=== PATIENT | female | born 1945 | race Caucasian/White ===

== ENCOUNTER 2018-09-04 09:34 | Day surgery (SDC) | payer MEDICARE, OTHER ==
[~2018-09-04 09:34] MED LIST: BUPIVACAINE HCL 0.75% INJ/PF (7.5 MG/1 ML) 10 ML SDV OD PRN; CHONDR SU A NA/HYALUR INTRAOC KIT (SURGICARE) ONE; EPINEPHRINE INJ/PF 1 MG/1 ML AMPULE ONE; FENTANYL CITRATE INJ/PF 100 MCG/2 ML AMPUL ONE; KETOROLAC TROMETHAMINE 0.45% 4 DROP/0.4 ML DROPERETTE OD PRN; LIDOCAINE 1% INJ-PF (10 MG/ML) 30 ML SDV ONE; LIDOCAINE 4% INJ/PF (40 MG/ML) 5 ML AMPUL OD PRN; MIDAZOLAM 2 MG/2 ML INJ ONE
[2018-09-04] MEDS: TROPICAMIDE 1% OPH SOLN 3 ML OD PRN ×3 (10:32→10:52)
[2018-09-04] MEDS: BESIFLOXACIN HCL 0.6% OPH SUSP 5 ML BOTTLE OD PRN ×4 (10:32→11:49)
[2018-09-04] MEDS: CYCLOPENTOLATE 0.2%/PHENYLEPHRINE 1% OPH SOLN 2 ML OD PRN ×3 (10:32→10:52)
[2018-09-04] MEDS: TETRACAINE HCL 0.5% OPH SOLN 0.6 ML DROPERETTE OD PRN ×2 (10:33→10:52)
[2018-09-04] MEDS ORDERED: LIDOCAINE 1%/PHENYLEPHRINE 1.5% 1 ML VIAL ONE (11:03)
--- NOTE | 2018-09-04 12:21 | [facility] OPERATIVE REPORT E ---
[facility] Operative Report NAME: ISRAEL MOHAN AGE: 73Y DATE OF SURGERY: 09/04/2018 ROOM: PREOPERATIVE DIAGNOSIS: CATARACT, RIGHT EYE. POSTOPERATIVE DIAGNOSIS: CATARACT, RIGHT EYE. PROCEDURE PERFORMED: PHACOEMULSIFICATION WITH SYMFONY INTRAOCULAR LENS, RIGHT EYE. SURGEON: ALEKSANDR ARANA MD ANESTHESIA: TOPICAL WITH MAC. INDICATIONS FOR SURGERY: Difficulty reading small print and captions on TV. Best corrected visual acuity 20/50. PROCEDURE: The patient was brought to the Operating Room and placed on the operative table. Following tetracaine drops, topical anesthesia was administered. This consisted of instrument wipe pledgets soaked in a solution of 4% Xylocaine mixed with 0.75% Marcaine in a 1:2 ratio. A 2 x 1 cm pledget was placed in the superior fornix. A 1 x 1 cm pledget was placed in the inferior fornix. The eye was patched shut for 5 minutes. The patch was removed. The eye was sterilely prepped and draped in the usual manner. Lid speculum was placed in the eye. The pledgets were removed. 4-0 black silk sutures were placed around the superior and the inferior rectus muscles to be used as traction. A conjunctival peritomy was made at the 10 o'clock position. Hemostasis was obtained with bipolar cautery. A posterior limbal groove was created using a crescent knife and dissected anteriorly towards the cornea. A sharp point blade was used to create a paracentesis site at the 2 o'clock position. A 2.4 mm keratome was used to enter the anterior chamber through the groove. Viscoelastic was injected into the anterior chamber. An anterior capsulotomy was performed using Utrata forceps in a capsulorrhexis fashion. Hydrodissection and hydrodelineation were performed. Phacoemulsification was performed in onoguh-jfw-hilkppc technique. A total of 1 minute 8 seconds phaco time was used. Following this, the I/A unit was used to remove residual cortex. Viscoelastic was injected into the capsular bag. Intraocular lens model ZXR00, 23.0 diopters, serial number [id number] was placed in the capsular bag. The I/A unit was used to remove residual viscoelastic. The wound was seen to be watertight under high and low pressure, and no sutures were placed. The intraocular lens was well centered. The pressure was adjusted in the eye to normal pressure. The 4-0 black silk sutures and lid speculum were removed. The eye was shielded after Besivance drops were placed. The patient tolerated the procedure well and was sent to the Recovery Room in good condition. DICTATING PHYSICIAN: ALEKSANDR ARANA M.D. DICTATING PHYSICIAN: ALEKSANDR ARANA M.D. [id number] PHY#: [id number] ID: [id number] JOB#: [id number] ACCT: [id number] cc:ALEKSANDR ARANA M.D. >
--- NOTE | 2018-09-04 12:26 | [facility] DISCHARGE SUMMARY E ---
[facility] Discharge Summary NAME: ISRAEL MOHAN AGE: 73Y ADMITTED: 09/04/2018 DISCHARGED: 09/04/2018 FINAL DIAGNOSIS: CATARACT, RIGHT EYE. HOSPITAL COURSE: The patient is a 73-year-old lady who underwent uneventful cataract extraction with intraocular lens implant, right eye on 09/04/2018. She will be discharged to home. She is instructed to resume preoperative medications, take Tylenol as needed for discomfort, to keep her eye shielded, to use Durezol, Ilevro, and Besivance at 3 p.m. and 8 p.m., and to follow up in my office in 1 day. DICTATING PHYSICIAN: ALEKSANDR ARANA M.D. [id number] PHY#: [id number] ID: [id number] JOB#: [id number] ACCT: [id number] cc:ALEKSANDR ARANA M.D. >
== END 2018-09-04 12:30 | disposition home or self-care (01) ==
LOC: SC 09:34
PROVIDERS: ATTEND Ophthalmology
DX: H25.811 Combined forms of age-related cataract, right eye (principal); H57.03 Miosis; I10 Essential (primary) hypertension; K21.9 Gastro-esophageal reflux disease without esophagitis; G47.30 Sleep apnea, unspecified; Z79.02 Long term (current) use of antithrombotics/antiplatelets; Z86.73 Personal history of transient ischemic attack (TIA), and cerebral infarction without residual deficits; Z79.899 Other long term (current) drug therapy; Z79.82 Long term (current) use of aspirin
CPT/HCPCS: 66984; V2788; J2250; J3490 ×3; A9270; J0171; J3010; J2370; 142

== ENCOUNTER 2019-05-14 09:15 | Day surgery (SDC) | payer MEDICARE, OTHER ==
[~2019-05-14 09:15] MED LIST changes: +BALANCED SALT IRRIG SOLN COMB2 15 ML BOTTLE ONE; -BUPIVACAINE HCL 0.75% INJ/PF (7.5 MG/1 ML) 10 ML SDV OD PRN; +BUPIVACAINE HCL 0.75% INJ/PF (7.5 MG/1 ML) 10 ML SDV ONE; -CHONDR SU A NA/HYALUR INTRAOC KIT (SURGICARE) ONE; -EPINEPHRINE INJ/PF 1 MG/1 ML AMPULE ONE; -KETOROLAC TROMETHAMINE 0.45% 4 DROP/0.4 ML DROPERETTE OD PRN; -LIDOCAINE 1% INJ-PF (10 MG/ML) 30 ML SDV ONE; +LIDOCAINE 2%/EPINEPHRINE INJ 20 ML VIAL ONE; -LIDOCAINE 4% INJ/PF (40 MG/ML) 5 ML AMPUL OD PRN; +POVIDONE-IODINE 5% OPH PREP SOLN 30 ML ONE; +TETRACAINE HCL 0.5% OPH SOLN 4 ML ONE; +THROMBIN (BOVINE) TOPICAL 5000 UNIT VIAL ONE; +TOBRAMYCIN SULFATE/DEXAMETH OPH OINTMENT 3.5 GM ONE
[2019-05-14] MEDS ORDERED: PROPOFOL INJ 200 MG/20 ML VIAL IV ONE (10:35)
[2019-05-14] MEDS ORDERED: LIDOCAINE 2% INJ (20 MG/ML) 20 ML MDV ONE (11:08)
[2019-05-14] MEDS: NEO/POLYMYX B SULF/DEXAMETH OPH OINTMENT 3.5 GM ONE ×3 (11:20→11:56)
--- NOTE | 2019-05-14 12:55 | [facility] OPERATIVE REPORT E ---
[facility] Operative Report NAME: ISRAEL MOHAN AGE: 73Y DATE OF SURGERY: 05/13/2019 ROOM: PREOPERATIVE DIAGNOSIS: BILATERAL UPPER EYELID DERMATOTHLASIS WITH VISUAL FIELD LOSS. POSTOPERATIVE DIAGNOSIS: BILATERAL UPPER EYELID DERMATOTHLASIS WITH VISUAL FIELD LOSS. PROCEDURE PERFORMED: Bilateral upper eyelid blepharoplasty SURGEON: ALEKSANDR ARANA MD ANESTHESIA: LOCAL WITH MAC. INDICATIONS FOR SURGERY: Patient complains of her eyelids drooping and blocking her peripheral vision. She has to strain to keep her eyelids open. PROCEDURE: The patient was brought to the Operating Room and both upper eyelids were sterilely prepped and draped in the usual manner. Tetracaine drops were placed in the eye. Attention was directed to both upper lids where the upper lid crease was marked and 0.3 mm forceps were used to estimate the excess upper eyelid skin to be excised. This was marked in elliptical fashion. Local anesthesia as administered. This consisted of 2% Xylocaine with epinephrine mixed with 0.75% Marcaine. Approximately 2.5 mL of this was used to infiltrate both upper eyelids in the previously marked areas and the local anesthetic was diffused with a Q-Tip. Attention was directed to the left upper lid where the elliptical piece of skin was removed. Hemostasis was obtained with bipolar cautery. The orbital septum was opened and prolapsed retroseptal fat was grasped with a hemostat, cut and cauterized. Thrombin was placed on the incision. Identical procedure was performed on the right upper lid. Wound closure was completed with 3 interrupted 6-0 Silk sutures, equally spaced through both upper lids, taking a deep bite of fascia. This was followed by a running 6-0 Nylon suture. There was full closure of the lids and good hemostasis at the end of the surgery. Maxitrol ointment was placed on both upper lids. Patient tolerated procedure well and sent to recovery room in good condition. DICTATING PHYSICIAN: ALEKSANDR ARANA M.D. DICTATING PHYSICIAN: ALEKSANDR ARANA M.D. [id number] PHY#: [id number] ID: [id number] JOB#: [id number] ACCT: [id number] cc:ALEKSANDR ARANA M.D. >
--- NOTE | 2019-05-14 12:57 | [facility] DISCHARGE SUMMARY E ---
[facility] Discharge Summary NAME: ISRAEL MOHAN AGE: 73Y ADMITTED: 05/14/2019 DISCHARGED: 05/14/2019 HOSPITAL COURSE: The patient is a 73-year-old lady who underwent uneventful upper eyelid blepharoplasty on 05/14/19. She will be discharged to home. She is instructed to resume preoperative medications, take Tylenol as needed for discomfort. She will use Maxitrol ointment twice a day on both upper lids. She will use the blepharoplasty ice pack 10 minutes out of every hour while awake for the first 24 hours and she will follow up in my office in approximately 10 days. DICTATING PHYSICIAN: ALEKSANDR ARANA M.D. [id number] PHY#: [id number] ID: [id number] JOB#: [id number] ACCT: [id number] cc:ALEKSANDR ARANA M.D. >
== END 2019-05-14 12:40 | disposition home or self-care (01) ==
LOC: SC 09:15
PROVIDERS: ATTEND Ophthalmology
DX: H02.831 Dermatochalasis of right upper eyelid (principal); H02.834 Dermatochalasis of left upper eyelid; H53.453 Other localized visual field defect, bilateral; K21.9 Gastro-esophageal reflux disease without esophagitis; I10 Essential (primary) hypertension; G47.30 Sleep apnea, unspecified; Z79.899 Other long term (current) drug therapy; Z79.82 Long term (current) use of aspirin; Z79.01 Long term (current) use of anticoagulants; Z86.73 Personal history of transient ischemic attack (TIA), and cerebral infarction without residual deficits
CPT/HCPCS: 15823; 00103; J2250; J3490 ×8; J3010; J2704; 103